=== PATIENT | female | born 1995 | race American Indian/Alaskan Native ===

== ENCOUNTER 2017-12-29 21:18 | Emergency (ER) | payer OTHER ==
[2017-12-29 21:35] VITALS: BMI 34.0
--- NOTE | 2017-12-29 22:30 | ED PDOC ---
Arrival/HPI <Chao Escobar - Last Filed: 12/29/17 22:49> - General Historian: Patient - History of Present Illness Time/Duration: Other (2 days) Symptom Onset: Gradual Symptom Course: Unchanged Activities at Onset: Light Context: Home <Joi Palacios PA-C - Last Filed: 12/30/17 00:14> - General Chief Complaint: Medical Clearance Time Seen by Provider: 12/29/17 21:35 - History of Present Illness Narrative History of Present Illness (Text): 12/29/17 21:50 22 year old female, with no significant past medical history, presents to the emergency department complaining of 2 day history of right leg pain and swelling associated with joint pain to her fingers and toes. Patient denies any recent trauma or injury. She also denies any recent travel. Patient denies any fever, chills, chest pain, shortness of breath, nausea, vomiting, diarrhea, urinary symptoms, decrease range of motion, back pain, neck pain, numbness, headache, dizziness, joint stiffness or any other complaints. (Joi Palacios PA-C) Past Medical History - Provider Review Nursing Documentation Reviewed: Yes - Psychiatric Hx Substance Use: No - Anesthesia Hx Anesthesia: No <Joi Palacios PA-C - Last Filed: 12/30/17 00:14> Family/Social History - Physician Review Nursing Documentation Reviewed: Yes Family/Social History: No Known Family HX Smoking Status: Never Smoked Hx Alcohol Use: No Hx Substance Use: No <Joi Palacios PA-C - Last Filed: 12/30/17 00:14> Allergies/Home Meds <Chao Escobar - Last Filed: 12/29/17 22:49> <Joi Palacios PA-C - Last Filed: 12/30/17 00:14> Allergies/Adverse Reactions: Allergies No Known Allergies Allergy (Verified 12/29/17 21:39) Home Medications: Home Meds Medication Instructions Recorded Confirmed No Known Home Med 07/04/16 12/29/17 Review of Systems - Physician Review All systems were reviewed & negative as marked: Yes - Review of Systems Constitutional: absent: Fevers, Other (Chills) Respiratory: absent: SOB Cardiovascular: absent: Chest Pain Gastrointestinal: absent: Diarrhea, Nausea, Vomiting Genitourinary Female: absent: Dysuria, Frequency, Hematuria Musculoskeletal: Arthralgias (to her fingers and toes ), Other (right leg pain and swelling with no decrease range of motion). absent: Back Pain, Neck Pain Neurological: absent: Headache, Dizziness, Other (numbness) <Joi Palacios PA-C - Last Filed: 12/30/17 00:14> Physical Exam Vital Signs Reviewed: Yes Temperature: Afebrile Blood Pressure: Normal Pulse: Regular Respiratory Rate: Normal Appearance: Positive for: Well-Appearing, Non-Toxic, Comfortable Pain Distress: None Mental Status: Positive for: Alert and Oriented X 3 - Systems Exam Head: Present: Atraumatic, Normocephalic Pupils: Present: PERRL Extroacular Muscles: Present: EOMI Conjunctiva: Present: Normal Mouth: Present: Moist Mucous Membranes Neck: Present: Normal Range of Motion Respiratory/Chest: Present: Clear to Auscultation, Good Air Exchange. No: Respiratory Distress, Accessory Muscle Use Cardiovascular: Present: Regular Rate and Rhythm, Normal S1, S2. No: Murmurs Abdomen: No: Tenderness, Distention, Peritoneal Signs Back: Present: Normal Inspection Upper Extremity: Present: Normal Inspection, Normal ROM, NORMAL PULSES, Neurovascularly Intact, Capillary Refill < 2s, Norm 2-Pt Discrimination. No: Cyanosis, Edema, Tenderness, Swelling, Temperature Abnormalties, Deformity Lower Extremity: Present: Normal Inspection, NORMAL PULSES, Normal ROM, Neurovascularly Intact, Capillary Refill < 2 s. No: Edema, Tenderness, Swelling , Deformity, Temperature Abnormalties Neurological: Present: GCS=15, CN II-XII Intact, Speech Normal, Motor Func Grossly Intact, Normal Sensory Function Skin: Present: Warm, Dry, Normal Color. No: Rashes Psychiatric: Present: Alert, Oriented x 3, Normal Insight, Normal Concentration <Joi Palacios PA-C - Last Filed: 12/30/17 00:14> Medical Decision Making <Chao Escobar - Last Filed: 12/29/17 22:49> - Lab Interpretations I have reviewed the lab results: Yes <Joi Palacios PA-C - Last Filed: 12/30/17 00:14> ED Course and Treatment: 12/29/17 21:50 Impression: 22 year old female presents complaining of right leg pain and swelling associated with joint pain to her fingers and toes for the past 2 days. Plan: -- Labs -- Urine Culture -- POC Urine Test -- Urinalysis -- Duplex Lower Extrm Vein Right US -- Reassess and disposition Progress Notes: Labs reviewed and wnl, including normal BNP, UA (-), Uhcg (-). US doppler RLE : no dvt, as per US tech. On reevaluation, patient reports no CP, SOB, numbness to the leg. On exam, patient remains awake alert and oriented 3 in no acute distress. Diagnostic results d/w the patient. Advised to follow up with primary care physician in 1-2 days without fail. Return to the emergency room at any time for any new or worsening symptoms. Patient states she fully agrees with and understands discharge instructions. States that she agrees with the plan and disposition. Verbalized and repeated discharge instructions and plan. I have given the patient opportunity to ask any additional questions. (Philip RESENDIZ,Joi Ibrahim) - Lab Interpretations Lab Results: 12/29/17 21:55 12/29/17 22:46 Lab Results 12/29/17 22:46: Sodium 140, Potassium 4.0, Chloride 106, Carbon Dioxide 24, Anion Gap 14, BUN 13, Creatinine 0.6 L, Est GFR ( Amer) > 60, Est GFR ( Non-Af Amer) > 60, Random Glucose 98, Calcium 9.8, Magnesium 2.1, Total Bilirubin 0.2, AST 30, ALT 21, Alkaline Phosphatase 69, NT-Pro-B Natriuret Pep 13.7, Total Protein 8.0, Albumin 4.6, Globulin 3.5, Albumin/Globulin Ratio 1.3 12/29/17 22:27: Urine Color Yellow, Urine Appearance Clear, Urine pH 6.0, Ur Specific [place] 1.025, Urine Protein Negative, Urine Glucose (UA) Negative, Urine Ketones Negative, Urine Blood Negative, Urine Nitrate Negative, Urine Bilirubin Negative, Urine Urobilinogen 1.0 H, Ur Leukocyte Esterase Negative 12/29/17 21:55: WBC 6.6, RBC 5.25, Hgb 12.3, Hct 36.3, MCV 69.1 L, MCH 23.4 L, MCHC 33.9, RDW 14.4, Plt Count 349, MPV 9.9, Gran % 54.6, Lymph % (Auto) 37.9 H , [place] % (Auto) 5.6, Eos % (Auto) 1.7, Baso % (Auto) 0.2, Gran # 3.58, Lymph # ( Auto) 2.5, [place] # (Auto) 0.4, Eos # (Auto) 0.1, Baso # (Auto) 0.01 - RAD Interpretation Radiology Orders: 12/29/17 21:55 DUPLEX LOWER EXTRM VEIN RIGHT [US] Stat - PA / ROLLER INSPECTOR / Resident Statement / has reviewed & agrees with the documentation as recorded. <Chao Escobar - Last Filed: 12/29/17 22:49> - PA / ROLLER INSPECTOR / Resident Statement / has reviewed & agrees with the documentation as recorded. - Scribe Statement The provider has reviewed the documentation as recorded by the Scribe <Joi Palacios PA-C - Last Filed: 12/30/17 00:14> - Scribe Statement [place] Provider Scribe Attestation: All medical record entries made by the Scribe were at my direction and personally dictated by me. I have reviewed the chart and agree that the record accurately reflects my personal performance of the history, physical exam, medical decision making, and the department course for this patient. I have also personally directed, reviewed, and agree with the discharge instructions and disposition. (Joi Palacios PA-C) Disposition/Present on Arrival <Chao Escobar - Last Filed: 12/29/17 22:49> - Present on Arrival Any Indicators Present on Arrival: No History of DVT/PE: No History of Uncontrolled Diabetes: No Urinary Catheter: No History of Decub. Ulcer: No History Surgical Site Infection Following: None - Disposition Have Diagnosis and Disposition been Completed?: Yes Disposition Time: 00:10 Patient Plan: Discharge <Joi Palacios PA-C - Last Filed: 12/30/17 00:14> - Disposition Diagnosis: Pain and swelling of right lower leg Disposition: HOME/ ROUTINE Patient Problems: Current Active Problems Problem Status Onset Pain and swelling of right lower leg Acute Condition: STABLE Discharge Instructions (ExitCare): Muscle and Bone Pain (DC) Additional Instructions: Thank you for letting us take care of you today. You were treated for right leg pain and swelling. The emergency medical care you received today was directed at your acute symptoms. Return to the Emergency Department if your symptoms worsen, do not improve, or if you have any other problems. Please contact your doctor in 2 days for re-evaluation and follow up / or call one of the physicians/clinics you have been referred to that are listed on the Patient Visit Information form that is included in your discharge packet. Bring any paperwork you were given at discharge with you along with any medications you are taking to your follow up visit. Our treatment cannot replace ongoing medical care by a primary care provider (PCP) outside of the emergency department. Thank you for allowing the [facility] team to be part of your care today. Referrals: PCP,NO [Primary Care Provider] - Follow up with primary [facility] [place] [Outside] - Follow up with primary Forms: [employer] ([place]an), WORK NOTE
[2017-12-29 22:39] LABS: URINE BILIRUBIN NEGATIVE (NEGATIVE); URINE BLOOD NEGATIVE (NEGATIVE); URINE GLUCOSE (UA) NEGATIVE (NEGATIVE); URINE LEUKOCYTE ESTERASE NEGATIVE Leu/uL (NEGATIVE); URINE PROTEIN NEGATIVE mg/dL (<30 mg/dL)
[2017-12-29 22:40] LABS: URINE APPEARANCE CLEAR (CLEAR); URINE COLOR YELLOW (YELLOW)
[2017-12-29 22:59] LABS: BASO # 0.01 K/mm3 (0.0-2.0); BASO % 0.2 % (0.0-3.0); EOS # 0.1 (0.0-0.7); EOS % 1.7 % (1.5-5.0); GRAN # 3.58 (1.4-6.5); GRAN % 54.6 % (50.0-68.0); HEMOGLOBIN 12.3 g/dL (12.0-16.0); LYMPH # 2.5 (1.2-3.4); LYMPH % 37.9 % (22.0-35.0); MEAN CELL VOLUME 69.1 fl (80.0-105.0); MEAN CORPUSCULAR HEMOGLOBIN 23.4 pg (25.0-35.0); MEAN CORPUSCULAR HGB CONC 33.9 g/dl (31.0-37.0); MEAN PLATELET VOLUME 9.9 fl (7.0-11.0); MONO # 0.4 (0.1-0.6); MONO % 5.6 % (1.0-6.0); RBC 5.25 10^6/uL (3.5-6.1); RED CELL DISTRIBUTION WIDTH 14.4 % (11.5-14.5); WHITE BLOOD COUNT 6.6 10^3/ul (4.5-11.0)
[2017-12-29 23:13] LABS: ALB/GLOB RATIO 1.3 (1.1-1.8); ALBUMIN 4.6 g/dL (3.0-4.8); ALT/SGPT 21 U/L (7-56); AST/SGOT 30 U/L (14-36); BLOOD UREA NITROGEN 13 mg/dL (7-21); CALCIUM 9.8 mg/dL (8.4-10.5); GFR NON-AFRICAN AMERICAN > 60
[2017-12-29 23:21] LABS: B-TYPE NATRIURETIC PEPTIDE 13.7 pg/mL (0-450)
[2017-12-30 00:52] VITALS: BP 127/70; PULSE 88; RESP 18; O2SAT 98
--- NOTE | 2017-12-30 09:37 | US ---
PROCEDURE: Right lower extremity venous US HISTORY: Leg pain and swelling. Evaluate for DVT. PHYSICIAN(S): Johnson Dutta M.D. TECHNIQUE: Duplex sonography and color-flow Doppler with graded compression were used to evaluate the deep venous system of the right lower extremity. FINDINGS: The visualized deep venous system of the right lower extremity is sonographically normal and compressible. Normal waveforms and augmentation are seen. There is no sonographic evidence for deep venous thrombosis in the visualized segments of the right lower extremity. IMPRESSION: 1. No sonographic evidence for deep venous thrombosis in the visualized segments of the right lower extremity.
== END 2017-12-30 00:52 | disposition home or self-care (01) ==
LOC: ED 21:18
DX: M79.661 Pain in right lower leg (principal); M79.89 Other specified soft tissue disorders